=== PATIENT | female | born 1940 | race Caucasian/White ===

== ENCOUNTER 2016-05-24 20:15 | Inpatient (IN) | payer OTHER ==
[~2016-05-24] VITALS: Ht 154.9 cm; Wt 120.7 kg
[~2016-05-24 20:15] MED LIST: ACET325C PO; ASPI325T4 PO; ASPI81TA9 PO; CETI10TA22 PO; DICL100G7 TP; ESOM20CA PO; GUAI5LIQ5 PO; LIDO700A4 TD; METH1ADH7 TP; MULT1TAB52 PO; OXYC1TAB7 PO
--- NOTE | 2016-05-24 20:42 | ED.ADGEN ---
Past Medical History Past Medical History: Hypertension, Other Additional Past Medical Histor: LE EDEMA,BELLS PALSY, POLIO, Past Surgical History: Cholecystectomy, Knee Replacement, Tonsillectomy, Other Additional Past Surgical Histo: LEFT FOOT, LEFT BREAST BX, COLONOSCOPY, EGD. Alcohol Use: None Drug Use: None Adult General Chief Complaint Chief Complaint: HIP PAIN HPI HPI Patient is a 75 year old woman, history of hypertension, Boykin's palsy with right-sided facial droop, arthritis, obesity, who presents to the emergency department with complaint of left hip pain. Patient states that about 5 days ago she stood up to answer the door, and when she sat back down and she missed the chair, falling to the ground landing in her buttocks. It was a carpeted floor. She states that she generally ambulatory to the walker. She states she was having pain in the left hip, which is been growing worse over the past several days, and states that today the pain was so bad that she fell down to her knees, although she was supported by family this happen. She denies any neck pain, any chest pain, any other extremity pain. States that she isn't compliant with her medications, and last took Tylenol for pain yesterday. Denies any urinary complaints, states that she is generally incontinent. Patient has had pain in her hip previously, which was due to arthritis. Review of Systems Review of Systems Constitutional: Denies fever or chills. [] Eyes: Denies change in visual acuity. [] HENT: Denies nasal congestion or sore throat. [] Respiratory: Denies cough or shortness of breath. [] Cardiovascular: Denies chest pain or edema. [] GI: Denies abdominal pain, nausea, vomiting, bloody stools or diarrhea. [] : Denies dysuria. [] Musculoskeletal: Denies back pain, complaining of pain in the left hip. Integument: Denies rash. [] Neurologic: Denies headache, focal weakness or sensory changes. [] Endocrine: Denies polyuria or polydipsia. [] Lymphatic: Denies swollen glands. [] Psychiatric: Denies depression or anxiety. [] Current Medications Current Medications Current Medications Medications (Trade) Dose Ordered Sig/Elizabeth Start Time Stop Time Status Last Admin Dose Admin Fentanyl Citrate (Fentanyl 2ml Vial) 25 mcg PRN Q15MIN PRN 05/24/16 20:45 05/25/16 20:44 05/24/16 21:08 25 MCG Allergies Allergies Allergies Coded Allergies Type Severity Reaction Last Updated Verified Sulfa (Sulfonamide Antibiotics) Allergy Intermediate 12/26/15 Yes strawberry Allergy Intermediate 02/25/16 Yes Uncoded Allergies Type Severity Reaction Last Updated Verified ice-brito lettuce Allergy Intermediate 03/27/16 Physical Exam Physical Exam Constitutional: Well developed, well nourished, no acute distress, non-toxic appearance. [] HENT: Normocephalic, atraumatic, bilateral external ears normal, oropharynx moist, no oral exudates, nose normal. [] Eyes: PERRLA, EOMI, conjunctiva normal, no discharge. [] Neck: Normal range of motion, no tenderness, supple, no stridor. [] Cardiovascular:Heart rate regular rhythm, no murmur, S1, S2, mildly tachycardic , no rubs or gallops. [] Lungs & Thorax: Diminished breath sounds at bases bilaterally, no wheezing, rhonchi, rales. [] Abdomen: Bowel sounds normal, obese, soft, no tenderness, no masses, no pulsatile masses. [] Skin: Warm, dry, no erythema, no rash. [] Back: No tenderness, no CVA tenderness. [] Extremities: Patient with tenderness all patient along the left hip, greater trochanter region, extending in towards the pelvis. No external signs of trauma. No cyanosis, no clubbing, ROM intact, patient with chronically enlarged lower extremities, with edema, which is unchanged, no weeping, patient with scarring and legs from paulino. Neurologic: Alert and oriented X 3, normal motor function, normal sensory function, no focal deficits noted. [] Psychologic: Affect normal, judgement normal, mood normal. [] Current Patient Data Vital Signs Vital Signs Date Time Temp Pulse Resp B/P Pulse Ox O2 Delivery O2 Flow Rate FiO2 05/24/16 21:08 16 95 Room Air 05/24/16 20:28 98.6 100 131/64 98.6 Lab Values Laboratory Tests Test 05/24/16 20:55 05/24/16 22:05 White Blood Count 14.3x10^3/uL (4.0-11.0) H Red Blood Count 3.63x10^6/uL (3.50-5.40) Hemoglobin 12.0g/dL (12.0-15.5) Hematocrit 36.8% (36.0-47.0) Mean Corpuscular Volume 101fL (79-100) H Mean Corpuscular Hemoglobin 33pg (25-35) Mean Corpuscular Hemoglobin Concent 33g/dL (31-37) Red Cell Distribution Width 15.6% (11.5-14.5) H Platelet Count 263x10^3/uL (140-400) Neutrophils (%) (Auto) 88% (31-73) H Lymphocytes (%) (Auto) 6% (24-48) L Monocytes (%) (Auto) 4% (0-9) Eosinophils (%) (Auto) 2% (0-3) Basophils (%) (Auto) 1% (0-3) Neutrophils # (Auto) 12.5x10^3uL (1.8-7.7) H Lymphocytes # (Auto) 0.8x10^3/uL (1.0-4.8) L Monocytes # (Auto) 0.6x10^3/uL (0.0-1.1) Eosinophils # (Auto) 0.2x10^3/uL (0.0-0.7) Basophils # (Auto) 0.1x10^3/uL (0.0-0.2) Segmented Neutrophils % 87% (35-66) H Lymphocytes % 4% (24-48) L Monocytes % 6% (0-10) Eosinophils % 3% (0-5) Platelet Estimate Adequate (ADEQUATE) Sodium Level 141mmol/L (136-145) Potassium Level 4.2mmol/L (3.5-5.1) Chloride Level 105mmol/L (98-107) Carbon Dioxide Level 28mmol/L (21-32) Anion Gap 8 (6-14) Blood Urea Nitrogen 19mg/dL (7-20) Creatinine 0.9mg/dL (0.6-1.0) Estimated GFR (Cockcroft-Gault) 60.7 BUN/Creatinine Ratio 21 (6-20) H Glucose Level 142mg/dL (70-99) H Calcium Level 9.1mg/dL (8.5-10.1) Total Bilirubin 0.4mg/dL (0.2-1.0) Aspartate Amino Transferase (AST) 20U/L (15-37) Alanine Aminotransferase (ALT) 18U/L (14-59) Alkaline Phosphatase 105U/L (46-116) Total Protein 6.9g/dL (6.4-8.2) Albumin 3.0g/dL (3.4-5.0) L Albumin/Globulin Ratio 0.8 (1.0-1.7) L Urine Collection Type Unknown Urine Color Yellow Urine Clarity Clear Urine pH 6.0 Urine Specific [place] 1.020 Urine Protein Negativemg/dL (NEG-TRACE) Urine Glucose (UA) Negativemg/dL (NEG) Urine Ketones (Stick) Negativemg/dL (NEG) Urine Blood Negative (NEG) Urine Nitrite Negative (NEG) Urine Bilirubin Negative (NEG) Urine Urobilinogen Dipstick 0.2mg/dL (0.2 mg/dL) Urine Leukocyte Esterase Negative (NEG) Urine RBC 0/HPF (0-2) Urine WBC Occ/HPF (0-4) Urine Squamous Epithelial Cells Occ/LPF Urine Bacteria Few/HPF (0-FEW) Urine Hyaline Casts Few/HPF Urine Mucus Slight/LPF Laboratory Tests 05/24/16 20:55 Laboratory Tests 05/24/16 20:55 EKG EKG EC: Sinus tachycardia, heart rate 108 bpm, upright axis, QTC of 473, SC 100, QRS of 88, mild baseline artifact noted, patient with contour normality is noted in the anterior septal leads with Q waves in V2, abnormal ECG, does not meet STEMI criteria. [] Radiology/Procedures Radiology/Procedures Chest x-ray: One view: Top normal cardiac silhouette, no infiltrates, no effusions, no pneumothorax, no soft tissue or bony abnormalities identified. As interpreted by me. Lumbar spine: Three-view: Patient with significant degenerative disease noted, no evidence of acute fracture or subluxation. No soft tissue or acute bony abnormalities identified. As interpreted by me. Old this and bilateral hips: Patient with significant degenerative disease noted , no evidence of acute fracture or subluxation identified. As interpreted by me. [] Course & Med Decision Making Course & Med Decision Making Pertinent Labs and Imaging studies reviewed. (See chart for details) Due to patient's in the left hip, x-rays of left hip and pelvis along with lumbar spine obtained, patient is no bony point tenderness. Degenerative changes noted, no evidence of acute fracture identified. On reevaluation after receiving pain medication patient remains mildly tachycardic, can complaining of significant pain. After discussion with family at bedside, CT of the pelvis obtained to rule out occult fracture. No concerning findings identified on CT pelvis, although slightly limited due to motion artifact. I did discuss findings with patient and daughter bedside. Patient noted to have a mild leukocytosis, but no evidence of infection in urine, chest x-ray, and no other complaints aside from pain in the hip. Therefore, will admit to the hospital for continued management of pain symptoms, and continued monitoring, repeat laboratory studies to be taken in the morning. Patient is resting more complaint received pain medication in the ED. Patient's plan was to be evaluated by her primary care provider this coming Wednesday for a screening physical before admission to a assisted facility, as she has been unable to perform activities of daily living at home in a safe fashion, patient's daughter currently is on a leave of absence open to care for her mother. This information was relayed to Dr. Pryor internal medicine, who did accept the patient to her service as a full admission, will consult PTOT for evaluation, with plan at this time to assist with a transition to a assisted facility with the patient is discharged from the hospital. Patient transferred to the floor without issue. Dragon Disclaimer Dragon Disclaimer This electronic medical record was generated, in whole or in part, using a voice recognition dictation system. Departure Impression: Primary Impression: Hip pain Disposition: ADMITTED INPATIENT Admitting Physician: Alivia Pryor Condition: IMPROVED Problem Qualifiers Primary Impression: Hip pain Laterality: left Qualified Code: M25.552 - Pain in left hip NURYS BULLOCK DO May 24, 2016 20:42
[2016-05-24] MEDS ORDERED: FENTANYL PF 100 MCG/2 ML VIAL. IV PRN (20:45)
[2016-05-24 21:01] LABS: BASO # 0.1 x10^3/uL (0.0-0.2); BASO % 1 % (0-3); EOS % 2 % (0-3); HEMATOCRIT 36.8 % (36.0-47.0); LYMPH # 0.8 x10^3/uL (1.0-4.8); LYMPH % 6 % (24-48); MEAN CORPUSCULAR HEMOGLOBIN 33 pg (25-35); MEAN CORPUSCULAR HGB CONC 33 g/dL (31-37); MEAN CORPUSCULAR VOLUME 101 fL (79-100); MONO % 4 % (0-9); NEUT % 88 % (31-73); PLATELET COUNT 263 x10^3/uL (140-400); RED BLOOD COUNT 3.63 x10^6/uL (3.50-5.40); RED CELL DISTRIBUTION WIDTH 15.6 % (11.5-14.5); WHITE BLOOD COUNT 14.3 x10^3/uL (4.0-11.0)
[2016-05-24 21:12] LABS: CALCIUM 9.1 mg/dL (8.5-10.1); CREATININE 0.9 mg/dL (0.6-1.0); GFR 60.7; POTASSIUM 4.2 mmol/L (3.5-5.1)
[2016-05-24 21:18] LABS: ALBUMIN/GLOBULIN RATIO 0.8 (1.0-1.7); TOTAL BILIRUBIN 0.4 mg/dL (0.2-1.0); TOTAL PROTEIN 6.9 g/dL (6.4-8.2)
[2016-05-24 22:24] LABS: BILIRUBIN,URINE NEGATIVE (NEG); GLUCOSE,URINE NEGATIVE (NEG); NITRITE,URINE NEGATIVE (NEG); PROTEIN,URINE NEGATIVE (NEG-TRACE); UROBILINOGEN,URINE 0.2 mg/dL (0.2 mg/dL)
[2016-05-24 22:41] LABS: BACTERIA,URINE FEW /HPF (0-FEW); RBC,URINE 0 /HPF (0-2); SQUAMOUS EPITHELIAL CELL,UR OCC /LPF; WBC,URINE OCC /HPF (0-4)
[2016-05-24 23:14] LABS: % EOS 3 % (0-5)
[2016-05-24 23:15] LABS: PLT ESTIMATE ADEQUATE (ADEQUATE)
[2016-05-25] VITALS (7 sets, daily range): BP systolic 102–135; BP diastolic 43–66
[2016-05-25 00:11] LABS: OBC FLU VALID
--- NOTE | 2016-05-25 00:23 | RAD ---
Examination: CT pelvis without contrast. History: History of fall, hip pain. COMPARISON None available. TECHNIQUE Axial CT images of the pelvis were performed without contrast. Coronal sagittal reformats were performed. Exposure: One or more of the following dose reduction technique were utilized for this examination: 1. Automated exposure control. 2.Adjustment of MA and /or KV according to patient size. 3. Use of iterative reconstruction technique. Findings: Partially visualized moderate degenerative changes identified in the lumbar spine. Moderate joint space loss identified in the bilateral hip joints. There is no obvious acute fracture identified. The urinary bladder is moderately distended. Small right posterolateral urinary bladder diverticulum identified. Few sigmoid colon diverticulosis identified. IMPRESSION - No acute fracture identified. Examination somewhat limited due to motion artifact. - Moderate degenerative changes bilateral hip joints. Electronically signed by: Terrence Best (May 25, 2016 00:21:11)
[2016-05-25] MEDS ORDERED: MORPHINE SULFATE 4 MG/ML DISP.SYRIN. IV PRN (00:30)
[2016-05-25] MEDS ORDERED: ACETAMINOPHEN 325 MG TABLET. PO PRN (00:30)
[2016-05-25] MEDS ORDERED: ONDANSETRON PF 4 MG/2 ML VIAL. IV PRN (00:30)
--- NOTE | 2016-05-25 01:13 | RAD ---
Examination: Two views of the lumbar spine. History: History of fall, pain. COMPARISON Findings. Evaluation is limited due to patient body habitus. Moderate to severe degenerative changes identified in the lumbar spine. Evaluation of the alignment is somewhat limited due to overlapping soft tissue due to patient body habitus. . Probable mild anterolisthesis of L4 on L5. IMPRESSION 1. Moderate to severe degenerative changes lumbar spine. 2. Probable mild anterolisthesis of L4 on L5. Electronically signed by: Terrence Best (May 25, 2016 01:11:32)
--- NOTE | 2016-05-25 02:01 | ACF ---
Admit Criteria Forms Admit Criteria Forms Admit Criteria Forms MUSCULOSKELETAL DISEASE GRG Clinical Indications for Admission to Inpatient Care (Place 'X' for any and all applicable criteria): Hospital admission is needed for appropriate care of the patient because of ANY ONE of the following: [X]I. Fracture, dislocation, or other musculoskeletal injury requiring inpatient care(medical) as indicated by ANY ONE of the following(4)(5)(6)(7) [ ]a) Vertebral fracture requiring observation for instability or neurologic compromise (8) [ ]b) Compartment syndrome (proven or cannot be ruled out during observation level of care) (9) [ ]c) Limb-threatening injury [ ]d) Major injury requiring inpatient stabilization such as traction initiation or external fixation before internal fixation or closure of complex or open fracture [ ]e) Major injury requiring inpatient treatment after emergency or observation level care (as appropriate) [X]f) Severe pain requiring acute inpatient management [ ]II. Newly diagnosed or suspected bone, joint, or orthopedic device infection (e.g., osteomyelitis, septic arthritis) needing ANY ONE of the following(1)(2)(3) [ ]a) IV antibiotics that cannot be initiated in other than inpatient setting (e.g., patient too unstable or home infusion not available) [ ]b) Device removal or replacement [ ]c) Bone or soft tissue debridement [ ]d) Joint drainage (drain placement or repetitive aspirations) [ ]III. Severe rheumatologic disease (e.g., systemic lupus erythematosus, rheumatoid arthritis) with complications or comorbidities (Also use Optimal Recovery Care Criteria or General Recovery Criteria as appropriate on the basis of predominant condition), including ANY ONE of the following(10 )(11)(12)(13) [ ]a) Severe infection (e.g., ACCOUNTS SUPERVISOR infection, sepsis) (14) [ ]b) Respiratory complications, including ANY ONE of the following: [ ]i) Pleural effusion with respiratory compromise [ ]ii) Pulmonary hypertension with congestive failure [ ]iii) Respiratory failure [ ]iv) Pulmonary hemorrhage (15) [ ]c) Hematologic disease, including ANY ONE of the following: [ ]i) Coagulopathy with bleeding [ ]ii) Thrombosis with hypercoagulable state [ ]iii) Thrombotic thrombocytopenic purpura [ ]d) Cerebritis with seizures, psychosis, or other severe abnormalities [ ]e) Vertebral destruction with monitoring needed for cervical myelopathy& possible respiratory compromise [ ]f) Exacerbation that requires inpatient treatment (e.g., intravenous immunosuppression) (16) [ ]g) Acute renal failure [ ]IV. Severe vasculitis with complications or comorbidities (Also use Optimal Recovery Care Criteria or General Recovery Criteria as appropriate on the basis of predominant condition), including ANY ONE of the following(11)(12)(17)(18)(19)(20) [ ]a) ACCOUNTS SUPERVISOR vasculitis with seizures, psychosis, or other severe abnormalities (22) [ ]b) Renal failure (16) [ ]c) Pulmonary hemorrhage (15) [ ]d) Cerebral infarction [ ]e) Gastrointestinal ischemia [ ]f) Gangrene or threatened amputation [ ]g) Exacerbation that requires inpatient treatment (e.g., intravenous immunosuppression) (19)(21) [ ]V. Severe myopathy as indicated by ANY ONE of the following (28)(29) [ ]a) New onset of airway compromise or inability to swallow [ ]b) Respiratory deterioration with observation needed for impending respiratory failure [ ]c) Exacerbation that requires inpatient treatment (e.g., intravenous immunosuppression) [ ]. Severe gout (crystal arthropathy) as indicated by ANY ONE of the following (23)(24) [ ]a) Severe pain requiring acute inpatient management [ ]b) Exacerbation that requires inpatient treatment (e.g., intravenous treatment) [ ]VII.Rhabdomyolysis and ANY ONE of the following (25)(26)(27) [ ]a) Acute renal failure [ ]b) Need for intravenous hydration after emergency or observation level care (as appropriate) [ ]c) Inability to maintain oral hydration [ ]d) Change in mental status [ ]e) Electrolyte abnormality that remains after emergency or observation level care (as appropriate) [ ]VIII Post amputation complication, as indicated by ANY ONE of the following [ ]a) Infection [ ]b) Dehiscence [ ]c) Myodesis failure [ ]IX. Severe pain requiring acute inpatient management as indicated by ALL of the following (30)(31)(32) [ ]a) Continuous or frequent (e.g., every 2 to 4 hrs) parenteral analgesics required [A] [ ]b) Rapid improvement expected from treatment or acute intervention ( e.g., surgery, anesthesia procedure[B] [ ]X. Musculoskeletal Disease and ALL of the following: [ ]a) Symptom or finding for which emergency and observation care have failed or are not considered appropriate (Use General Criteria: Observation Care as appropriate) [ ]b) Presence of ANY ONE of the following [ ]i) A General Admission Criteria [ ]ii) A Pediatric General Admission Criteria The original [facility] content created by [facility] has been revised. The portions of the content which have been revised are identified through the use of italic text or in bold, and [facility] has neither reviewed nor approved the modified material. All other unmodified content is copyright [facility]. Please see references footnoted in the original [facility] edition 2016 JOSE BROWN May 25, 2016 02:00
--- NOTE | 2016-05-25 06:18 | EKG ---
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
--- NOTE | 2016-05-25 07:38 | RAD ---
Portable chest, 05/24/2016: History: Pain, fall Comparison is made to a study from 04/07/2016. The left ventricle is enlarged. There is calcific plaquing and tortuosity of the thoracic aorta. The pulmonary vascularity is normal. No pulmonary infiltrates are seen. There is no evidence of pleural fluid. Moderate degenerative change is present in the spine. There are moderate arthritic changes at both shoulders. IMPRESSION: 1. Cardiomegaly and aortic atherosclerosis. 2. No acute abnormality is detected.
--- NOTE | 2016-05-25 07:40 | RAD ---
Pelvis with both hips, 05/24/2016: History: Fall, pain The bony structures are demineralized. No acute fracture or dislocation is identified. There are moderate degenerative changes at both hip joints and in the lower lumbar spine. IMPRESSION: No acute bony abnormality is detected.
[2016-05-25] MEDS ORDERED: DOCUSATE SODIUM 100 MG CAPSULE PO SCH (09:00)
--- NOTE | 2016-05-25 10:54 | HP ---
ADMIT DATE: 05/25/2016 CHIEF COMPLAINT: Hip pain. HISTORY OF PRESENT ILLNESS: The patient is a pleasant 75-year-old female who developed hip pain 5 days ago after trying to sit down and fell on to the ground, actually she missed the chair. She landed on her buttocks, but did not present for evaluation until last night. We did some imaging, is negative, but her legs are quite edematous, swollen and red. I have discussed the case with the ER physician. We are going to admit the patient, give her IV antibiotics and did some physical therapy. PAST MEDICAL HISTORY: Mild obesity, Boykin's palsy, hypertension, lower extremity edema, left breast biopsy, colonoscopy, EGD. ALLERGIES: SULFA, ____ AND STRAWBERRIES. FAMILY HISTORY: Coronary artery disease. SOCIAL HISTORY: She does not drink, smoke or take drugs. MEDICATIONS: Reviewed, please refer the MRAD. REVIEW OF SYSTEMS: GENERAL: No history of weight change, weakness or fevers. SKIN: No bruising, hair changes or rashes. EYES: No blurred, double or loss of vision. NOSE AND THROAT: No history of nosebleeds, hoarseness or sore throat. HEART: No history of palpitations, chest pain or shortness of breath on exertion. LUNGS: Denies cough, hemoptysis, wheezing or shortness of breath. GASTROINTESTINAL: Denies changes in appetite, nausea, vomiting, diarrhea or constipation. GENITOURINARY: No history of frequency, urgency, hesitancy or nocturia. NEUROLOGIC: Denies history of numbness, tingling, tremor or weakness. PSYCHIATRIC: No history of panic, anxiety or depression. ENDOCRINE: No history of heat or cold intolerance, polyuria or polydipsia. EXTREMITIES: She complains of pain and swelling in lower extremities. PHYSICAL EXAMINATION: VITAL SIGNS: Temperature afebrile, pulse 68, respirations 18, blood pressure 144/92. GENERAL: She is alert, cooperative. HEART: Normal S1, S2. LUNGS: Clear. ABDOMEN: Soft, positive bowel sounds, obese. EXTREMITIES: 3+ edema. SKIN: She has got extensive cellulitis of lower extremities. ENDOCRINE: No thyromegaly. LYMPHATICS: No cervical nodes. HEMATOPOIETIC: No bruising. LABORATORY DATA: White count 14, hemoglobin 12, platelets 263. Electrolytes are normal other than a glucose of 142. ASSESSMENT AND PLAN: Lower extremity cellulitis in a middle-aged female who also complains of hip pain after a fall, but apparently she does not have a hip fracture. We will give her IV antibiotics, check a BNP level to see if she might have an element of heart failure as her legs are quite swollen, PT, OT, wound care. Continue home medicines. half-way evaluation. DUARTE MATUTE DO DR: ZULEMA/renato JOB#: [id number] / [id number]
[2016-05-25] MEDS: CEFTRIAXONE SODIUM 1 GM in IV NORMAL SALINE 50ML 50 ML IV SCH (11:38)
[2016-05-26 03:18] VITALS: BP 118/56
[2016-05-26 04:13] LABS: BASO # 0.1 x10^3/uL (0.0-0.2); BASO % 1 % (0-3); EOS % 8 % (0-3); HEMATOCRIT 33.4 % (36.0-47.0); HEMOGLOBIN 11.5 g/dL (12.0-15.5); LYMPH # 2.1 x10^3/uL (1.0-4.8); LYMPH % 20 % (24-48); MEAN CORPUSCULAR HEMOGLOBIN 34 pg (25-35); MEAN CORPUSCULAR HGB CONC 34 g/dL (31-37); MEAN CORPUSCULAR VOLUME 99 fL (79-100); MONO % 6 % (0-9); NEUT % 65 % (31-73); PLATELET COUNT 224 x10^3/uL (140-400); RED BLOOD COUNT 3.37 x10^6/uL (3.50-5.40); RED CELL DISTRIBUTION WIDTH 15.1 % (11.5-14.5); WHITE BLOOD COUNT 10.1 x10^3/uL (4.0-11.0)
[2016-05-26 04:39] LABS: CALCIUM 8.3 mg/dL (8.5-10.1); CREATININE 0.6 mg/dL (0.6-1.0); GFR 96.9; POTASSIUM 3.9 mmol/L (3.5-5.1)
[2016-05-26 07:00] VITALS: BP 120/60
[2016-05-26] MEDS: DOCUSATE SODIUM 100 MG CAPSULE. PO SCH (09:00)
[2016-05-26 11:00] VITALS: BP 122/71
[2016-05-26] MEDS: CEFTRIAXONE SODIUM 1 GM in IV NORMAL SALINE 50ML 50 ML IV SCH (11:00)
--- NOTE | 2016-05-26 11:13 | PDOC ---
PROGRESS NOTES Chief Complaint Chief Complaint Left hip pain History of Present Illness History of Present Illness No acute events overnight. Patient is seen during breakfast. She states her pain has improved and she is feeling better. [facility] Vitals Vitals Vital Signs Date Time Temp Pulse Resp B/P Pulse Ox O2 Delivery O2 Flow Rate FiO2 05/26/16 08:20 Room Air 05/26/16 07:00 98.3 83 20 120/60 91 98.3 Physical Exam General: Alert, Cooperative, No acute distress Heart: Regular rate, No murmurs Lungs: Clear, Other (no wheezing) Abdomen: Soft, No tenderness Extremities: No cyanosis, Other (BL LE edema and erythema to mid calf, no open wounds) Skin: No breakdown, Other (BL LE edema and erythema to mid calf, no open wounds ) Labs LABS Laboratory Tests Test 05/26/16 03:50 White Blood Count 10.1x10^3/uL (4.0-11.0) Red Blood Count 3.37x10^6/uL (3.50-5.40) Hemoglobin 11.5g/dL (12.0-15.5) Hematocrit 33.4% (36.0-47.0) Mean Corpuscular Volume 99fL (79-100) Mean Corpuscular Hemoglobin 34pg (25-35) Mean Corpuscular Hemoglobin Concent 34g/dL (31-37) Red Cell Distribution Width 15.1% (11.5-14.5) Platelet Count 224x10^3/uL (140-400) Neutrophils (%) (Auto) 65% (31-73) Lymphocytes (%) (Auto) 20% (24-48) Monocytes (%) (Auto) 6% (0-9) Eosinophils (%) (Auto) 8% (0-3) Basophils (%) (Auto) 1% (0-3) Neutrophils # (Auto) 6.6x10^3uL (1.8-7.7) Lymphocytes # (Auto) 2.1x10^3/uL (1.0-4.8) Monocytes # (Auto) 0.6x10^3/uL (0.0-1.1) Eosinophils # (Auto) 0.8x10^3/uL (0.0-0.7) Basophils # (Auto) 0.1x10^3/uL (0.0-0.2) Sodium Level 143mmol/L (136-145) Potassium Level 3.9mmol/L (3.5-5.1) Chloride Level 107mmol/L (98-107) Carbon Dioxide Level 28mmol/L (21-32) Anion Gap 8 (6-14) Blood Urea Nitrogen 16mg/dL (7-20) Creatinine 0.6mg/dL (0.6-1.0) Estimated GFR (Cockcroft-Gault) 96.9 Glucose Level 101mg/dL (70-99) Calcium Level 8.3mg/dL (8.5-10.1) Review of Systems Review of Systems Pain has improved. Denies chest pain and shortness of breath. Denies fever and chills. Assessment and Plan Assessmemt and Plan Problems Medical Problems: (1) Hip pain Status: Acute ASSESSMENT: Left hip pain, no acute fracture Leukocytosis - resolved BL LE Edema and erythema Possible CHF HTN PLAN: Added lasix 20mg PO Qday due to edema Continue antibiotic therapy Restarted pain control SW is helping with discharge planning Continue local wound care Continue PT/OT Continue to monitor daily labs Problems: Comment Review of Relevant I have reviewed the following items yamini (where applicable) has been applied. Labs Laboratory Tests Test 05/24/16 20:55 05/24/16 22:05 05/24/16 23:45 05/25/16 10:40 White Blood Count 14.3x10^3/uL (4.0-11.0) Red Blood Count 3.63x10^6/uL (3.50-5.40) Hemoglobin 12.0g/dL (12.0-15.5) Hematocrit 36.8% (36.0-47.0) Mean Corpuscular Volume 101fL (79-100) Mean Corpuscular Hemoglobin 33pg (25-35) Mean Corpuscular Hemoglobin Concent 33g/dL (31-37) Red Cell Distribution Width 15.6% (11.5-14.5) Platelet Count 263x10^3/uL (140-400) Neutrophils (%) (Auto) 88% (31-73) Lymphocytes (%) (Auto) 6% (24-48) Monocytes (%) (Auto) 4% (0-9) Eosinophils (%) (Auto) 2% (0-3) Basophils (%) (Auto) 1% (0-3) Neutrophils # (Auto) 12.5x10^3uL (1.8-7.7) Lymphocytes # (Auto) 0.8x10^3/uL (1.0-4.8) Monocytes # (Auto) 0.6x10^3/uL (0.0-1.1) Eosinophils # (Auto) 0.2x10^3/uL (0.0-0.7) Basophils # (Auto) 0.1x10^3/uL (0.0-0.2) Segmented Neutrophils % 87% (35-66) Lymphocytes % 4% (24-48) Monocytes % 6% (0-10) Eosinophils % 3% (0-5) Platelet Estimate Adequate (ADEQUATE) Sodium Level 141mmol/L (136-145) Potassium Level 4.2mmol/L (3.5-5.1) Chloride Level 105mmol/L (98-107) Carbon Dioxide Level 28mmol/L (21-32) Anion Gap 8 (6-14) Blood Urea Nitrogen 19mg/dL (7-20) Creatinine 0.9mg/dL (0.6-1.0) Estimated GFR (Cockcroft-Gault) 60.7 BUN/Creatinine Ratio 21 (6-20) Glucose Level 142mg/dL (70-99) Calcium Level 9.1mg/dL (8.5-10.1) Total Bilirubin 0.4mg/dL (0.2-1.0) Aspartate Amino Transf (AST/SGOT) 20U/L (15-37) Alanine Aminotransferase (ALT/SGPT) 18U/L (14-59) Alkaline Phosphatase 105U/L (46-116) Total Protein 6.9g/dL (6.4-8.2) Albumin 3.0g/dL (3.4-5.0) Albumin/Globulin Ratio 0.8 (1.0-1.7) Urine Collection Type Unknown Urine Color Yellow Urine Clarity Clear Urine pH 6.0 Urine Specific [place] 1.020 Urine Protein Negativemg/dL (NEG-TRACE) Urine Glucose (UA) Negativemg/dL (NEG) Urine Ketones (Stick) Negativemg/dL (NEG) Urine Blood Negative (NEG) Urine Nitrite Negative (NEG) Urine Bilirubin Negative (NEG) Urine Urobilinogen Dipstick 0.2mg/dL (0.2 mg/dL) Urine Leukocyte Esterase Negative (NEG) Urine RBC 0/HPF (0-2) Urine WBC Occ/HPF (0-4) Urine Squamous Epithelial Cells Occ/LPF Urine Bacteria Few/HPF (0-FEW) Urine Hyaline Casts Few/HPF Urine Mucus Slight/LPF Influenza Type A Antigen Negative (NEGATIVE) Influenza Type B Antigen Negative (NEGATIVE) Nasal Screen MRSA (PCR) Negative (Negative) Test 05/25/16 10:55 05/26/16 03:50 CX-Scy-S-Type Natriuretic Peptide 658pg/mL (0-449) White Blood Count 10.1x10^3/uL (4.0-11.0) Red Blood Count 3.37x10^6/uL (3.50-5.40) Hemoglobin 11.5g/dL (12.0-15.5) Hematocrit 33.4% (36.0-47.0) Mean Corpuscular Volume 99fL (79-100) Mean Corpuscular Hemoglobin 34pg (25-35) Mean Corpuscular Hemoglobin Concent 34g/dL (31-37) Red Cell Distribution Width 15.1% (11.5-14.5) Platelet Count 224x10^3/uL (140-400) Neutrophils (%) (Auto) 65% (31-73) Lymphocytes (%) (Auto) 20% (24-48) Monocytes (%) (Auto) 6% (0-9) Eosinophils (%) (Auto) 8% (0-3) Basophils (%) (Auto) 1% (0-3) Neutrophils # (Auto) 6.6x10^3uL (1.8-7.7) Lymphocytes # (Auto) 2.1x10^3/uL (1.0-4.8) Monocytes # (Auto) 0.6x10^3/uL (0.0-1.1) Eosinophils # (Auto) 0.8x10^3/uL (0.0-0.7) Basophils # (Auto) 0.1x10^3/uL (0.0-0.2) Sodium Level 143mmol/L (136-145) Potassium Level 3.9mmol/L (3.5-5.1) Chloride Level 107mmol/L (98-107) Carbon Dioxide Level 28mmol/L (21-32) Anion Gap 8 (6-14) Blood Urea Nitrogen 16mg/dL (7-20) Creatinine 0.6mg/dL (0.6-1.0) Estimated GFR (Cockcroft-Gault) 96.9 Glucose Level 101mg/dL (70-99) Calcium Level 8.3mg/dL (8.5-10.1) Laboratory Tests Test 05/26/16 03:50 White Blood Count 10.1x10^3/uL (4.0-11.0) Red Blood Count 3.37x10^6/uL (3.50-5.40) Hemoglobin 11.5g/dL (12.0-15.5) Hematocrit 33.4% (36.0-47.0) Mean Corpuscular Volume 99fL (79-100) Mean Corpuscular Hemoglobin 34pg (25-35) Mean Corpuscular Hemoglobin Concent 34g/dL (31-37) Red Cell Distribution Width 15.1% (11.5-14.5) Platelet Count 224x10^3/uL (140-400) Neutrophils (%) (Auto) 65% (31-73) Lymphocytes (%) (Auto) 20% (24-48) Monocytes (%) (Auto) 6% (0-9) Eosinophils (%) (Auto) 8% (0-3) Basophils (%) (Auto) 1% (0-3) Neutrophils # (Auto) 6.6x10^3uL (1.8-7.7) Lymphocytes # (Auto) 2.1x10^3/uL (1.0-4.8) Monocytes # (Auto) 0.6x10^3/uL (0.0-1.1) Eosinophils # (Auto) 0.8x10^3/uL (0.0-0.7) Basophils # (Auto) 0.1x10^3/uL (0.0-0.2) Sodium Level 143mmol/L (136-145) Potassium Level 3.9mmol/L (3.5-5.1) Chloride Level 107mmol/L (98-107) Carbon Dioxide Level 28mmol/L (21-32) Anion Gap 8 (6-14) Blood Urea Nitrogen 16mg/dL (7-20) Creatinine 0.6mg/dL (0.6-1.0) Estimated GFR (Cockcroft-Gault) 96.9 Glucose Level 101mg/dL (70-99) Calcium Level 8.3mg/dL (8.5-10.1) Medications Current Medications Fentanyl Citrate (Fentanyl 2ml Vial) 25 mcg PRN Q15MIN PRN IV PAIN GREATER THAN 3/10 Last administered on 05/24/16 21:08; Start 05/24/16 at 20:45; Stop at 20:44; Status DC Ondansetron HCl (Zofran) 4 mg PRN Q8HRS PRN IV NAUSEA/VOMITING; Start 05/25/16 at 00:30; Stop 05/26/16 at 00:29; Status DC Morphine Sulfate 4 mg PRN Q2HR PRN IV PAIN; Start 05/25/16 at 00:30; Stop 05/26 at 00:29; Status DC Acetaminophen (Tylenol) 650 mg PRN Q4HRS PRN PO FEVER; Start 05/25/16 at 00:30 ; Stop 05/26/16 at 00:29; Status DC Docusate Sodium 100 mg 100 mg DAILY PO ; Start 05/25/16 at 09:00; Stop 05/25/16 at 13:56; Status DC Ceftriaxone Sodium/Sodium Chloride (Rocephin/Iv Sodium Chloride 0.9% 50ml) 50 ml @ 100 mls/hr Q24H IV Last administered on 05/25/16 11:38; Start 05/25/16 at 11:00 Docusate Sodium (Colace) 100 mg DAILY PO ; Start 05/26/16 at 09:00 Active Scripts Active Aspirin Ec (Aspirin) 81 Mg Tablet. 81 Mg PO DAILYWBKFT Reported Acetaminophen 325 Mg Capsule 650 Mg PO Q4HRS PRN pain or temp greater than 101 Zyrtec (Cetirizine Hcl) 10 Mg Tablet 1 Tab PO HS PRN Nexium Capsule (Esomeprazole Magnesium) 20 Mg Capsule. 1 Cap PO DAILY Multivitamins (Multivitamin) 1 Each Tablet 1 Each PO DAILY Vitals/I & O Vital Sign - Last 24 Hours 305/25/16 05/25/16 05/25/16 15:00 19:15 20:00 22:52 Temp 97.8 98.9 99.1 97.8 98.9 99.1 Pulse 95 98 98 Resp 18 18 18 B/P 102/51 132/43 112/55 Pulse Ox 94 93 91 O2 Delivery Room Air Room Air Room Air Room Air 05/26/16 05/26/16 05/26/16 03:18 07:00 08:20 Temp 98.2 98.3 98.2 98.3 Pulse 90 83 Resp 18 20 B/P 118/56 120/60 Pulse Ox 93 91 O2 Delivery Room Air Room Air Room Air Intake and Output 05/25/16 05/25/16 05/26/16 15:00 23:00 07:00 Intake Total 480 ml 0 ml Balance 480 ml 0 ml DUARTE MATUTE III DO May 26, 2016 11:12
[2016-05-26] MEDS ORDERED: MORPHINE SULFATE 4 MG/ML DISP.SYRIN. IV PRN (11:15)
[2016-05-26] MEDS ORDERED: ONDANSETRON PF 4 MG/2 ML VIAL. IV PRN (11:15)
[2016-05-26 15:00] VITALS: BP 130/69
[2016-05-26 19:00] VITALS: BP 124/62
[2016-05-26 23:00] VITALS: BP 126/62
[2016-05-27 03:00] VITALS: BP_SYST 127; BP_DIAS 63; BP_DIAS 65
[2016-05-27 05:26] LABS: BASO # 0.1 x10^3/uL (0.0-0.2); BASO % 1 % (0-3); EOS % 11 % (0-3); HEMATOCRIT 34.1 % (36.0-47.0); HEMOGLOBIN 11.6 g/dL (12.0-15.5); LYMPH # 1.7 x10^3/uL (1.0-4.8); LYMPH % 18 % (24-48); MEAN CORPUSCULAR HEMOGLOBIN 34 pg (25-35); MEAN CORPUSCULAR HGB CONC 34 g/dL (31-37); MEAN CORPUSCULAR VOLUME 100 fL (79-100); MONO % 6 % (0-9); NEUT % 65 % (31-73); PLATELET COUNT 227 x10^3/uL (140-400); RED BLOOD COUNT 3.41 x10^6/uL (3.50-5.40); RED CELL DISTRIBUTION WIDTH 15.1 % (11.5-14.5); WHITE BLOOD COUNT 9.1 x10^3/uL (4.0-11.0)
[2016-05-27 05:42] LABS: CALCIUM 8.4 mg/dL (8.5-10.1); CREATININE 0.7 mg/dL (0.6-1.0); GFR 81.1; POTASSIUM 3.9 mmol/L (3.5-5.1)
[2016-05-27 07:00] VITALS: BP 130/54
[2016-05-27] MEDS: DOCUSATE SODIUM 100 MG CAPSULE. PO SCH (09:00)
[2016-05-27] MEDS ORDERED: FUROSEMIDE 20 MG TABLET PO SCH (09:00)
[2016-05-27 11:00] VITALS: BP 125/52
[2016-05-27] MEDS: CEFTRIAXONE SODIUM 1 GM in IV NORMAL SALINE 50ML 50 ML IV SCH (11:59)
--- NOTE | 2016-05-27 12:30 | PDOC ---
PROGRESS NOTES Chief Complaint Chief Complaint Left hip pain History of Present Illness History of Present Illness No acute events overnight. Patient is resting comfortably. Patient has been accepted at [facility] and will discharge today. She is agreeable. Vitals Vitals Vital Signs Date Time Temp Pulse Resp B/P Pulse Ox O2 Delivery O2 Flow Rate FiO2 05/27/16 11:00 98.2 87 22 125/52 92 Room Air 98.2 Physical Exam General: Alert, Cooperative, No acute distress Heart: Regular rate, Normal S1, Normal S2 Lungs: Clear, Other (no wheezing) Abdomen: Normal bowel sounds, Soft, No tenderness Extremities: No cyanosis, Other (BL LE edema and erythema to mid calf, no open wounds) Skin: No breakdown, Other (BL LE edema and erythema to mid calf, no open wounds ) Labs LABS Laboratory Tests Test 05/27/16 04:45 White Blood Count 9.1x10^3/uL (4.0-11.0) Red Blood Count 3.41x10^6/uL (3.50-5.40) Hemoglobin 11.6g/dL (12.0-15.5) Hematocrit 34.1% (36.0-47.0) Mean Corpuscular Volume 100fL (79-100) Mean Corpuscular Hemoglobin 34pg (25-35) Mean Corpuscular Hemoglobin Concent 34g/dL (31-37) Red Cell Distribution Width 15.1% (11.5-14.5) Platelet Count 227x10^3/uL (140-400) Neutrophils (%) (Auto) 65% (31-73) Lymphocytes (%) (Auto) 18% (24-48) Monocytes (%) (Auto) 6% (0-9) Eosinophils (%) (Auto) 11% (0-3) Basophils (%) (Auto) 1% (0-3) Neutrophils # (Auto) 5.9x10^3uL (1.8-7.7) Lymphocytes # (Auto) 1.7x10^3/uL (1.0-4.8) Monocytes # (Auto) 0.5x10^3/uL (0.0-1.1) Eosinophils # (Auto) 1.0x10^3/uL (0.0-0.7) Basophils # (Auto) 0.1x10^3/uL (0.0-0.2) Sodium Level 142mmol/L (136-145) Potassium Level 3.9mmol/L (3.5-5.1) Chloride Level 106mmol/L (98-107) Carbon Dioxide Level 27mmol/L (21-32) Anion Gap 9 (6-14) Blood Urea Nitrogen 14mg/dL (7-20) Creatinine 0.7mg/dL (0.6-1.0) Estimated GFR (Cockcroft-Gault) 81.1 Glucose Level 97mg/dL (70-99) Calcium Level 8.4mg/dL (8.5-10.1) Review of Systems Review of Systems Afebrile. Denies chest pain and shortness of breath. Assessment and Plan Assessmemt and Plan Problems Medical Problems: (1) Hip pain Status: Acute ASSESSMENT: Left hip pain, no acute fracture Leukocytosis - resolved BL LE Edema and erythema Possible CHF HTN PLAN: Accepted at [facility] Continue antibiotic therapy Continue pain control Continue local wound care Continue PT/OT Continue to monitor daily labs Probable discharge to [facility] today. Problems: Comment Review of Relevant I have reviewed the following items yamini (where applicable) has been applied. Labs Laboratory Tests Test 05/26/16 03:50 05/27/16 04:45 White Blood Count 10.1x10^3/uL (4.0-11.0) 9.1x10^3/uL (4.0-11.0) Red Blood Count 3.37x10^6/uL (3.50-5.40) 3.41x10^6/uL (3.50-5.40) Hemoglobin 11.5g/dL (12.0-15.5) 11.6g/dL (12.0-15.5) Hematocrit 33.4% (36.0-47.0) 34.1% (36.0-47.0) Mean Corpuscular Volume 99fL (79-100) 100fL (79-100) Mean Corpuscular Hemoglobin 34pg (25-35) 34pg (25-35) Mean Corpuscular Hemoglobin Concent 34g/dL (31-37) 34g/dL (31-37) Red Cell Distribution Width 15.1% (11.5-14.5) 15.1% (11.5-14.5) Platelet Count 224x10^3/uL (140-400) 227x10^3/uL (140-400) Neutrophils (%) (Auto) 65% (31-73) 65% (31-73) Lymphocytes (%) (Auto) 20% (24-48) 18% (24-48) Monocytes (%) (Auto) 6% (0-9) 6% (0-9) Eosinophils (%) (Auto) 8% (0-3) 11% (0-3) Basophils (%) (Auto) 1% (0-3) 1% (0-3) Neutrophils # (Auto) 6.6x10^3uL (1.8-7.7) 5.9x10^3uL (1.8-7.7) Lymphocytes # (Auto) 2.1x10^3/uL (1.0-4.8) 1.7x10^3/uL (1.0-4.8) Monocytes # (Auto) 0.6x10^3/uL (0.0-1.1) 0.5x10^3/uL (0.0-1.1) Eosinophils # (Auto) 0.8x10^3/uL (0.0-0.7) 1.0x10^3/uL (0.0-0.7) Basophils # (Auto) 0.1x10^3/uL (0.0-0.2) 0.1x10^3/uL (0.0-0.2) Sodium Level 143mmol/L (136-145) 142mmol/L (136-145) Potassium Level 3.9mmol/L (3.5-5.1) 3.9mmol/L (3.5-5.1) Chloride Level 107mmol/L (98-107) 106mmol/L (98-107) Carbon Dioxide Level 28mmol/L (21-32) 27mmol/L (21-32) Anion Gap 8 (6-14) 9 (6-14) Blood Urea Nitrogen 16mg/dL (7-20) 14mg/dL (7-20) Creatinine 0.6mg/dL (0.6-1.0) 0.7mg/dL (0.6-1.0) Estimated GFR (Cockcroft-Gault) 96.9 81.1 Glucose Level 101mg/dL (70-99) 97mg/dL (70-99) Calcium Level 8.3mg/dL (8.5-10.1) 8.4mg/dL (8.5-10.1) Laboratory Tests Test 05/27/16 04:45 White Blood Count 9.1x10^3/uL (4.0-11.0) Red Blood Count 3.41x10^6/uL (3.50-5.40) Hemoglobin 11.6g/dL (12.0-15.5) Hematocrit 34.1% (36.0-47.0) Mean Corpuscular Volume 100fL (79-100) Mean Corpuscular Hemoglobin 34pg (25-35) Mean Corpuscular Hemoglobin Concent 34g/dL (31-37) Red Cell Distribution Width 15.1% (11.5-14.5) Platelet Count 227x10^3/uL (140-400) Neutrophils (%) (Auto) 65% (31-73) Lymphocytes (%) (Auto) 18% (24-48) Monocytes (%) (Auto) 6% (0-9) Eosinophils (%) (Auto) 11% (0-3) Basophils (%) (Auto) 1% (0-3) Neutrophils # (Auto) 5.9x10^3uL (1.8-7.7) Lymphocytes # (Auto) 1.7x10^3/uL (1.0-4.8) Monocytes # (Auto) 0.5x10^3/uL (0.0-1.1) Eosinophils # (Auto) 1.0x10^3/uL (0.0-0.7) Basophils # (Auto) 0.1x10^3/uL (0.0-0.2) Sodium Level 142mmol/L (136-145) Potassium Level 3.9mmol/L (3.5-5.1) Chloride Level 106mmol/L (98-107) Carbon Dioxide Level 27mmol/L (21-32) Anion Gap 9 (6-14) Blood Urea Nitrogen 14mg/dL (7-20) Creatinine 0.7mg/dL (0.6-1.0) Estimated GFR (Cockcroft-Gault) 81.1 Glucose Level 97mg/dL (70-99) Calcium Level 8.4mg/dL (8.5-10.1) Medications Current Medications Fentanyl Citrate (Fentanyl 2ml Vial) 25 mcg PRN Q15MIN PRN IV PAIN GREATER THAN 3/10 Last administered on 05/24/16 21:08; Start 05/24/16 at 20:45; Stop at 20:44; Status DC Ondansetron HCl (Zofran) 4 mg PRN Q8HRS PRN IV NAUSEA/VOMITING; Start 05/25/16 at 00:30; Stop 05/26/16 at 00:29; Status DC Morphine Sulfate 4 mg PRN Q2HR PRN IV PAIN; Start 05/25/16 at 00:30; Stop 05/26 at 00:29; Status DC Acetaminophen (Tylenol) 650 mg PRN Q4HRS PRN PO FEVER; Start 05/25/16 at 00:30 ; Stop 05/26/16 at 00:29; Status DC Docusate Sodium 100 mg 100 mg DAILY PO ; Start 05/25/16 at 09:00; Stop 05/25/16 at 13:56; Status DC Ceftriaxone Sodium/Sodium Chloride (Rocephin/Iv Sodium Chloride 0.9% 50ml) 50 ml @ 100 mls/hr Q24H IV Last administered on 05/27/16 11:59; Start 05/25/16 at 11:00 Docusate Sodium (Colace) 100 mg DAILY PO ; Start 05/26/16 at 09:00 Furosemide (Lasix) 20 mg DAILY PO Last administered on 05/27/16 09:54; Start 05/27/16 at 09:00 Ondansetron HCl (Zofran) 4 mg PRN Q8HRS PRN IV NAUSEA/VOMITING; Start 05/26/16 at 11:15 Morphine Sulfate 4 mg PRN Q2HR PRN IV PAIN; Start 05/26/16 at 11:15 Active Scripts Active Aspirin Ec (Aspirin) 81 Mg Tablet. 81 Mg PO DAILYWBKFT Reported Acetaminophen 325 Mg Capsule 650 Mg PO Q4HRS PRN pain or temp greater than 101 Zyrtec (Cetirizine Hcl) 10 Mg Tablet 1 Tab PO HS PRN Nexium Capsule (Esomeprazole Magnesium) 20 Mg Capsule.dr 1 Cap PO DAILY Multivitamins (Multivitamin) 1 Each Tablet 1 Each PO DAILY Vitals/I & O Vital Sign - Last 24 Hours 05/26/16 05/26/16 05/26/16 05/26/16 15:00 19:00 20:00 23:00 Temp 98.3 98.4 98.3 98.3 98.4 98.3 Pulse 107 92 90 Resp 20 20 20 B/P 130/69 124/62 126/62 Pulse Ox 92 97 93 O2 Delivery Room Air Room Air Room Air Room Air 05/27/16 05/27/16 05/27/16 05/27/16 03:00 03:00 07:00 07:12 Temp 99.0 99.0 98.4 99.0 99.0 98.4 Pulse 91 91 83 Resp 18 20 22 B/P 127/63 127/65 130/54 Pulse Ox 94 94 92 O2 Delivery Room Air Room Air Room Air Room Air 05/27/16 11:00 Temp 98.2 98.2 Pulse 87 Resp 22 B/P 125/52 Pulse Ox 92 O2 Delivery Room Air Intake and Output 05/26/16 05/26/16 05/27/16 15:00 23:00 07:00 Intake Total 240 ml Balance 240 ml DUARTE MATUTE III DO May 27, 2016 12:30
--- NOTE | 2016-05-28 03:33 | DS ---
DATE OF DISCHARGE: 05/27/2016 ADMISSION DIAGNOSIS: Left hip pain after a fall with no acute fracture. 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 CONSULTS: None. HOSPITAL COURSE: The patient is a pleasant elderly female who resides at a nursing facility. Basically, she fell. They were concerned she had fractures. We did imaging. It was negative, but she had intractable pain. We admitted her. We did some physical therapy and occupational therapy. She also had a UTI. We gave her some IV antibiotics and fluids. She has basically returned to her baseline. We plan to discharge. DISPOSITION: longterm. ACTIVITY: As tolerated. DIET: Low sodium. MEDICATIONS: Please see the MRAD. TOTAL TIME: 31 minutes. DUARTE MATUTE DO DR: ZULEMA/renato JOB#: [id number] / [id number] DENEEN aTmayo MD
== END 2016-05-27 16:12 | DRG 603 ==
LOC: ER 20:15 → 4 NORTH 23:30
PROVIDERS: ADMIT Internal Medicine; ATTEND Internal Medicine
DX: L03.116 Cellulitis of left lower limb (principal); N39.0 Urinary tract infection, site not specified; Z68.43 Body mass index [BMI] 50.0-59.9, adult; S70.02XA Contusion of left hip, initial encounter; L03.115 Cellulitis of right lower limb; E66.9 Obesity, unspecified; F03.90 Unspecified dementia, unspecified severity, without behavioral disturbance, psychotic disturbance, mood disturbance, and anxiety; G51.0 Bell's palsy; M19.90 Unspecified osteoarthritis, unspecified site; Z96.659 Presence of unspecified artificial knee joint; I10 Essential (primary) hypertension; Z82.49 Family history of ischemic heart disease and other diseases of the circulatory system; Z88.2 Allergy status to sulfonamides; Z91.018 Allergy to other foods
CPT/HCPCS: 36415; 71010; 72100; 72192; 73521; 80048; 80053; 81001; 83880; 85007; 85027; 87641; 87804; 93005; 96374; J0696; J3010; 97110; 97530; 97535; 99285-25